=== PATIENT | male | born 1945 | race Caucasian/White ===

== ENCOUNTER 2017-01-25 01:32 | Emergency (ER) | payer MEDICARE, OTHER ==
[~2017-01-25] VITALS: Ht 165.1 cm; Wt 79.5 kg
[~2017-01-25 01:32] MED LIST: ALBU8.5H3 INH; AMLO-145 PO; ASPI-664 PO; ATOR40TA68 PO; BENA20TA65 PO; CEPH-443 PO; CHOL500020 PO; CIPR500T4 PO; DOCU-159 PO; Metformin Hcl PO; OMEP20CA16 PO
[2017-01-25] MEDS ORDERED: SOD CHLORIDE 0.9% 500 ML IV STA (01:44)
[2017-01-25 02:07] LABS: BASOPHILS % 0.3 % (0.0-2.0); EOSINOPHILS # 0.1 10^3/ul (0.0-0.5); EOSINOPHILS % 1.4 % (0.0-7.0); HEMATOCRIT 36.9 % (42.0-52.0); HEMOGLOBIN 11.5 g/dl (14.0-18.0); LYMPHOCYTES # 1.9 10^3/ul (0.8-2.9); LYMPHOCYTES % 27.4 % (15.0-51.0); MEAN CORPUSCULAR HGB CONC 31.2 g/dl (32.0-37.0); MEAN CORPUSCULAR VOLUME 93.2 fl (82.0-101.0); MEAN PLATELET VOLUME 10.1 fl (7.4-10.4); MONOCYTE # 0.8 10^3/ul (0.3-0.9); MONOCYTES % 10.9 % (0.0-11.0); NEUTROPHIL # 4.2 10^3/ul (1.6-7.5); NEUTROPHILS % 59.9 % (39.0-77.0); PLATELET COUNT 211 10^3/UL (140-415); RED BLOOD COUNT 3.96 10^6/ul (4.70-6.10); RED CELL DISTRIBUTION WIDTH 14.4 % (11.5-14.5)
[2017-01-25] MEDS ORDERED: morphine 4 MG/ML VIAL IV STA ×2 (02:07→04:34)
[2017-01-25] MEDS ORDERED: ONDANSETRON 4 MG INJ IV STA (02:07)
--- NOTE | 2017-01-25 02:14 | RADRPT ---
PROCEDURE: XR Chest. CLINICAL INDICATION: Syncope. TECHNIQUE: Single frontal chest x-ray. COMPARISON: 01/25/2014 FINDINGS: Heart is mildly enlarged.. Pulmonary vessels are top normal caliber. There is hypoventilation with i ncreased bibasilar atelectasis. There is no pleural effusion. There is no pneumothorax. Bones are unchanged.. IMPRESSION: Cardiomegaly. Pulmonary vessels top normal in caliber. Hypoventilation with increased bibasilar atel ectasis. RPTAT: HMVK .Teofilo Massey MD, MD Date Time Electronically viewed and signed by .Teofilo Massey MD, on 01/25/2017 02:14 .K/
[2017-01-25 02:19] LABS: ANION GAP 15 (8-16); BLOOD UREA NITROGEN 11 mg/dl (7-20); CALCIUM 9.5 mg/dl (8.4-10.2); CARBON DIOXIDE 26 mmol/L (21-31); CHLORIDE 105 mmol/L (97-110); CREATININE 0.79 mg/dl (0.61-1.24); GLUCOSE 157 mg/dl (70-220); POTASSIUM 4.2 mmol/L (3.5-5.1); SODIUM 142 mmol/L (135-144)
[2017-01-25 02:39] LABS: TROPONIN-I < 0.012 ng/ml (0.00-0.12)
[2017-01-25 02:42] VITALS: Ht 165.1 cm; Wt 79.5 kg
--- NOTE | 2017-01-25 03:05 | RADRPT ---
PROCEDURE: Noncontrast CT Head. CLINICAL INDICATION: Pain. TECHNIQUE: Noncontrast CT of the head was obtained. The administered radiation dose was CTDI vol = 45 mGy, DLP = 720 mGy-cm. One or more of the following dose reduction techniques were used: automate d exposure control, adjustment of the mA and/or kV according to patient size and/or use of iterative reconstruction technique. COMPARISON: 01/25/2014 FINDINGS: The ventricles and cortical sulci are mildly enlarged. There is mild decreased attenuation within t he periventricular and subcortical white matter compatible with chronic microvascular changes. There is no acute intracranial hemorrhage or extra-axial fluid collection. There is no mass effect . No midline shift is identified. There is no loss of fermin-white differentiation to suggest acute in farction. The orbits are within normal limits. The paranasal sinuses are well aerated. No destructive osseous lesion is identified. IMPRESSION: No acute findings. Mild diffuse parenchymal volume loss and chronic microvascular changes. RPTAT: HIKT .Mychal Valencia MD, MD Date Time Electronically viewed and signed by .Mychal Valencia MD, MD on 01/25/2017 03:05 .T/
[2017-01-25 04:09] VITALS: BP 91/57; PULSE 74; RESP 15; TEMP 97.7
--- NOTE | 2017-01-25 04:39 | ERD ---
ER Documentation Chief Complaint Chief Complaint Syncope HPI This is a 71-year-old male who came in after syncopal episode. Patient states that he was having a bowel movement and he strains really then got up from the bathroom and syncopized. Denies any focal neurologic complaints. Denies any chest pain. Denies any other current complaints. ROS All systems reviewed and are negative except as per history of present illness. Medications Home Meds Active Scripts [Metformin Hcl] 500 MG TAB No Conflict Check, 1000 MG PO AC BREAKFAST DINNER, # 60 TAB Prov:MERRY FRY NP 01/27/14 Benazepril Hcl* (Lotensin*) 20 Mg Tab, 20 MG PO DAILY, #30 Prov:MERRY FRY [employer] 01/27/14 Reported Medications Omeprazole* (Omeprazole*) 20 Mg Capsule.dr, 20 MG PO BID, CAP 01/13/14 Albuterol Sulfate* (Proair HFA*) 8.5 Gm Hfa.aer.ad, 1-2 PUFF INH Q4-6HOURS, INH 01/13/14 Amlodipine Besylate* (Amlodipine Besylate*) 5 Mg Tablet, 5 MG PO DAILY, TAB 01/13/14 Cholecalciferol (Vitamin D3) 50,000 Unit Capsule, 85955 UNIT PO Q7D, CAP 01/13/14 Docusate Sodium* (Docusate Sodium*) 100 Mg Capsule, 100 MG PO TID, CAP 01/13/14 Aspirin* (Aspirin* EC) 81 Mg Tablet.dr, 81 MG PO DAILY, TAB 01/13/14 Atorvastatin* (Atorvastatin*) 40 Mg Tablet, 40 MG PO DAILY 01/25/13 Discontinued Scripts Cephalexin* (Keflex*) 500 Mg Capsule, 500 MG PO BID for 7 Days, CAP Prov:JELLY RIVERS MD 09/27/15 Ciprofloxacin Hcl* (Ciprofloxacin Hcl*) 500 Mg Tablet, 500 MG PO BID for 10 Days , TAB Prov:SANDRA MORIN MD 01/18/14 Allergies Allergies: Coded Allergies: No Known Drug Allergies (Verified Allergy, Unknown, 01/25/14) PMhx/Soc History of Surgery: Yes (Prostate/Bladder Biopsy) Anesthesia Reaction: No Hx Neurological Disorder: No Hx Respiratory Disorders: Yes (Asthma,COPD) Hx Cardiac Disorders: Yes (HTN) Hx Psychiatric Problems: No Hx Miscellaneous Medical Probl: Yes (Dyslipidemia,DM) Hx Alcohol Use: No Hx Substance Use: No Hx Tobacco Use: Yes (quit 2005) Smoking Status: Former smoker Physical Exam Vitals Vital Signs Date Time Temp Pulse Resp B/P Pulse Ox O2 Delivery O2 Flow Rate FiO2 01/25/17 04:09 97.7 74 15 91/57 97 Room Air 01/25/17 03:05 97.9 78 15 128/79 97 Room Air 01/25/17 02:42 97.7 85 16 129/76 98 01/25/17 01:40 97.7 85 19 129/76 98 Room Air Physical Exam Const: [] Head: Atraumatic Eyes: Normal Conjunctiva ENT: Normal External Ears, Nose and Mouth. Neck: Full range of motion..~ No meningismus. Resp: Clear to auscultation bilaterally Cardio: Regular rate and rhythm, no murmurs Abd: Soft, non tender, non distended. Normal bowel sounds Skin: No petechiae or rashes Back: No midline or flank tenderness Ext: No cyanosis, or edema Neur: Awake and alert Psych: Normal Mood and Affect Result Diagram: 01/25/17 0145 01/25/17 014 Results 24 hrs Laboratory Tests Test 01/25/17 01:45 White Blood Count 7.010^3/ul Red Blood Count 3.9610^6/ul Hemoglobin 11.5g/dl Hematocrit 36.9% Mean Corpuscular Volume 93.2fl Mean Corpuscular Hemoglobin 29.0pg Mean Corpuscular Hemoglobin Concent 31.2g/dl Red Cell Distribution Width 14.4% Platelet Count 46460^3/UL Mean Platelet Volume 10.1fl Neutrophils % 59.9% Lymphocytes % 27.4% Monocytes % 10.9% Eosinophils % 1.4% Basophils % 0.3% Nucleated Red Blood Cells % 0.0/100WBC Neutrophils # 4.210^3/ul Lymphocytes # 1.910^3/ul Monocytes # 0.810^3/ul Eosinophils # 0.110^3/ul Basophils # 0.010^3/ul Nucleated Red Blood Cells # 0.010^3/ul Sodium Level 142mmol/L Potassium Level 4.2mmol/L Chloride Level 105mmol/L Carbon Dioxide Level 26mmol/L Anion Gap 15 Blood Urea Nitrogen 11mg/dl Creatinine 0.79mg/dl Glucose Level 157mg/dl Calcium Level 9.5mg/dl Troponin I < 0.012ng/ml Current Medications Medications (Trade) Dose Ordered Sig/Doc Route PRN Reason Start Time Stop Time Status Last Admin Dose Admin Sodium Chloride (NS) 500 ml @ 500 mls/hr Q1H STAT IV 01/25/17 01:44 01/25/17 02:43 DC 01/25/17 02:11 Morphine Sulfate (morphine) 4 mg ONCE STAT IV 01/25/17 02:07 01/25/17 02:08 DC 01/25/17 02:18 Ondansetron HCl (Zofran Inj) 4 mg ONCE STAT IV 01/25/17 02:07 01/25/17 02:08 DC 01/25/17 02:18 Morphine Sulfate (morphine) 4 mg ONCE STAT IV 01/25/17 04:34 01/25/17 04:35 DC Procedures/MDM EKG: Rate/Rhythm: [Normal Sinus Rhythm] QRS, ST, T-waves: [No changes consistent w/ acute ischemia] Impression: [No evidence of ischemia or arrhythmia] Chest X-ray 1V Interpreted by me: Soft Tissue: No acute abnormalities Bones: No acute abnormalities Mediastinum/Cardiac Silhouette/Lungs: [No acute abnormalities] Patient's syncopal symptoms have stabilized while in the department and are suitable for outpatient follow up. Exam and work up not consistent w/ ischemia, arrhythmia, stroke, PE or dissection. Departure Diagnosis: Primary Impression: Syncope Syncope type: unspecified Qualified Code: R55 - Syncope, unspecified syncope type Condition: Stable Patient Instructions: Syncope, Unk Cause ELISEO MASON Jan 25, 2017 04:39
== END 2017-01-25 05:56 | disposition home or self-care (01) ==
LOC: E/R 01:32
DX: R55 Syncope and collapse (principal); I10 Essential (primary) hypertension; J44.9 Chronic obstructive pulmonary disease, unspecified; E11.9 Type 2 diabetes mellitus without complications; Z79.82 Long term (current) use of aspirin; Z79.84 Long term (current) use of oral hypoglycemic drugs; Z87.891 Personal history of nicotine dependence
CPT/HCPCS: 36415; 70450; 71010; 80048; 84484; 85025; 93005; 96374; 96375; 96376; 99285; J2270; J2405; J7040